=== PATIENT | male | born 1985 | race Caucasian/White ===

== ENCOUNTER 2019-09-09 09:49 | Outpatient (CLI) | payer OTHER, MEDICAID | END 2019-09-09 09:50 | disposition critical access hospital (66) | LOC: EMS 09:49 | PROVIDERS: ATTEND Surgery | DX: R07.9 Chest pain, unspecified (principal); M54.2 Cervicalgia; M25.562 Pain in left knee; V53.5XXA Driver of pick-up truck or van injured in collision with car, pick-up truck or van in traffic accident, initial encounter; Y92.414 Local residential or business street as the place of occurrence of the external cause | CPT/HCPCS: A0425; A0429 ==

== ENCOUNTER 2019-09-09 10:05 | Emergency (ER) | payer OTHER, MEDICAID ==
[2019-09-09] MEDS ORDERED: KETOROLAC 30 MG/ML VIAL IM STA (10:16)
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
[2019-09-09] MEDS ORDERED: ONDANSETRON ODT 4 MG TABLET TL STA (12:01)
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
[2019-09-09 13:03] VITALS: BP 134/70
== END 2019-09-09 13:11 | disposition home or self-care (01) ==
LOC: ED 10:05
DX: S16.1XXA Strain of muscle, fascia and tendon at neck level, initial encounter (principal); S39.012A Strain of muscle, fascia and tendon of lower back, initial encounter; S80.00XA Contusion of unspecified knee, initial encounter; S09.90XA Unspecified injury of head, initial encounter; M54.6 Pain in thoracic spine; V43.52XA Car driver injured in collision with other type car in traffic accident, initial encounter
CPT/HCPCS: 70450; 71250; 72125; 73562; 74176; 99284; Q0162